=== PATIENT | female | born 1945 | race Caucasian/White ===

== ENCOUNTER → 2017-05-23 | Day surgery (SDC) | payer OTHER ==
[~2017-05-23] VITALS: Ht 157.5 cm; Wt 65.0 kg
[~2017-05-23] MED LIST: *ENALAPRILAT 1.25 MG/ML VIAL PERIprocedural Use ONLY ONE; ACETAMINOPHEN 500 MG CPLT PO PRN; ALEN35TA24 PO; ATROPINE SULFATE 1% OPHT SOLN 2 ML BTL ONE; BALANCED SALT SOLN OPHT IRRIG 15 ML BTL ONE; CHLORHEXIDINE GLUCONATE 2 % 1 PACK (2 CLOTHS) TOPICAL PRN; DAPA1TAB3 PO; DEXAMETHASONE SOD PHOS 4 MG/ML VIAL ONE; DEXTROSE 50% IN WATER 50 ML SYRINGE ONE; DO NOT ADM ANY ANTICOAGULANT DRUGS PRN; EPINEPHrine HCL (1:1000) 1 MG/ML VIAL ONE; FENO54TA PO; GABA100C4 PO; GLIP10TA6 PO; INSULIN HUMAN REGULAR 1,000 UNITS/10 ML VIAL SQ PRN; KETOROLAC TROMETHAMINE 30 MG/ML (IVP) VIAL IV PUSH ONE; LABETALOL HCL 100 MG/20 ML VIAL IV ONE; LACTATED RINGER'S 1000 ML IV PRN; LEVO50TA4 PO; LIDOCAINE HCL 1% PF 5 ML AMPULE OTHER ONE; LISI-519 PO; MECL-62 PO; METF1000 PO; METOPROLOL TARTRATE 25 MG TAB PO PRN; OMEP20TA PO; ONDANSETRON HCL 4 MG/2 ML VIAL IM PRN; ONDANSETRON HCL 4 MG/2 ML VIAL IV PUSH PRN; PHENYLEPH/NS 1000 MCG/10 ML SYR IV ONE; POVIDONE IODINE 5% (ANTISEPSIS KIT) 4 APPLICATIONS EACH NARE PRN; PROPOFOL 200 MG/20 ML AMP IV ONE; SODIUM CHLORID 0.9% 500 ML IV PRN; STERILE WATER FOR INJECTION 20 ML VIAL ONE; TRIAMCINOLONE ACETONIDE 40 MG/ML VIAL ONE; ceFAZolin INJ 1,000 MG VIAL ONE; oxyCODONE/ACETAMINOPHEN 5 MG/325 MG TAB PO PRN
[2017-05-23] MEDS: TROPICAMIDE 1% OPHT SOLN 15 ML BTL LEFT EYE SCH ×3 (06:09→07:40)
[2017-05-23] MEDS: PHENYLEPHRINE HCL 2.5% OPTH SOLN 2 ML BTL LEFT EYE SCH ×3 (06:09→07:40)
[2017-05-23] MEDS: CYCLOPENTOLATE HCL 1% OPHT SOLN 2 ML BTL LEFT EYE SCH ×3 (06:09→07:40)
[2017-05-23 07:05] LABS: AUTOMATED NEUTROPHIL # 4.8 TH/MM3 (1.8-7.7); BASOPHIL # 0.1 TH/MM3 (0-0.2); BASOPHIL % 0.7 % (0.0-2.0); EOSINOPHIL # 0.5 TH/MM3 (0-0.4); EOSINOPHIL % 5.9 % (0.0-4.0); HEMATOCRIT 37.7 % (35.0-46.0); HEMO FLAGS DIFF FINAL; LYMPH % 24.7 % (9.0-44.0); MEAN CELL VOLUME 84.5 FL (80.0-100.0); MEAN CORPUSCULAR HEMOGLOBIN 28.7 PG (27.0-34.0); MEAN CORPUSCULAR HGB CONC 33.9 % (32.0-36.0); NEUT % 60.7 % (16.0-70.0); PLATELET COUNT 236 TH/MM3 (150-450); RED BLOOD COUNT 4.45 MIL/MM3 (4.00-5.30); RED CELL DISTRIBUTION WIDTH 13.9 % (11.6-17.2)
[2017-05-23] MEDS: ATROPINE SULFATE 1% OPHT SOLN 5 ML BTL LEFT EYE SCH ×3 (07:25→08:30)
--- NOTE | 2017-05-23 12:36 | MP ---
cc: DELROY JAVIER M.D. DATE OF SURGERY 05/23/2017 PREOPERATIVE DIAGNOSIS Proliferative diabetic retinopathy with traction retinal detachment of the macula and vitreous hemorrhage left eye. POSTOPERATIVE DIAGNOSIS Proliferative diabetic retinopathy with traction retinal detachment of the macula and vitreous hemorrhage left eye. PROCEDURE Trans pars plana vitrectomy with membranectomy, endolaser photocoagulation and gas fluid exchange. SURGEON Dr. Delroy Javier ANESTHESIA General laryngeal mask anesthesia. INDICATIONS Mrs. Harris is a 71-year-old woman with a history of proliferative diabetic retinopathy as well as hypertension who presented with decreased vision in the left eye down to 20/200 On examination she was found to have a vitreous hemorrhage as well as traction retinal detachment of her macula with a tabletop configuration. She wished to proceed with vitrectomy to try and repair the tractional detachment and improve her visual functioning. The risks and benefits of surgery were discussed with the patient. Informed consent was obtained as well as the possibility of cataract formation from the surgery. The severity of the situation was discussed with the patient and no guarantee was made as to visual outcome. OPERATIVE PROCEDURE She was brought to [facility] Operating Room #1 on the eye stretcher. Once in the room appropriate anesthesia monitoring devices were applied and she was placed under general anesthesia using a laryngeal mask. The left eye was identified as the operative site and prepped and draped in the usual sterile fashion. A lid speculum was placed. Using the Giovanny 23-gauge vitrectomy system the trocar cannulas were placed 4 mm posterior to the limbus after first displacing the conjunctiva and with a beveled entrance through the sclera. The first one was placed at approximately 3:15 o'clock and verified to be in the posterior pole. An infusion cannula was affixed to it and it was turned on. Two additional trocar cannulas were placed at 10 and 2 o'clock. The eye was entered with the [employer] light pipe and vitrectomy cutter and using the flat contact lens a core vitrectomy was carried out. The fibrovascular proliferation was very dense and stiff with a circular pattern around the optic nerves and heading out to the superonasal mid-periphery and along both inferior and superior arcades. The ring was completed over the temporal macula. Using the vertical scissors and the vitrectomy cutter, dissection of this fibrous tissue to relieve the tractional detachment was performed. The retina was flattened under Perfluoron liquid and then laser photocoagulation was completed just outside the arcades and into the mid-periphery using the lighted endolaser probe. The power varied between 250 and 300 milliwatts and 0.1-second exposure, a total of 2521 laser spots were placed. The Perfluoron was removed and air-fluid exchange was performed. Then the air was exchanged for a 16% concentration of C3F8 gas. The trocar cannulas were removed one by one with tamponade of the site with a cotton swab and diathermy to the overlying conjunctival wound. This left the eye with good pressure and no visible air leaks. Atropine drops were placed on the cornea followed by subconjunctival actions of Ancef 125 mg in 0.5 cc and Decadron 2 mg in 0.5 cc. The lid speculum was removed. The patient was undraped. TobraDex ointment was placed on the cornea and then the left eye was patched and shielded. The patient had the laryngeal mask removed in the room and was returned to Recovery in a face-down position. It should be noted that during the procedure she appeared to be developing some posterior subcapsular changes, almost a diffuse fog of the posterior surface of the lens. It should also be noted that her blood pressure was not well-controlled prior to placing her under anesthesia but was controlled throughout the case. I will talk to her primary care doctor about better blood pressure control in the postop period. MD BERTO Ortega/JULIANA /11:02 AM /12:15 PM
[2017-05-23 13:00] VITALS: BP 154/70; PULSE 84; RESP 18; TEMP 96.9; O2SAT 97
--- NOTE | 2017-05-23 14:37 | EKG ---
Date Performed: 05/23/2017 Time Performed: 06:45:20 PTAGE: 71 years EKG: Sinus rhythm NORMAL ECG NO PREVIOUS TRACING DOCTOR: Jimmy Ro Interpretating Date/Time 05/23/2017 14:35:35
== END | disposition home or self-care (01) ==
LOC: HSDC 05:54
PROVIDERS: ATTEND Ophthalmology
DX: E11.3522 Type 2 diabetes mellitus with proliferative diabetic retinopathy with traction retinal detachment involving the macula, left eye (principal); H43.12 Vitreous hemorrhage, left eye; I10 Essential (primary) hypertension; E78.5 Hyperlipidemia, unspecified; E03.9 Hypothyroidism, unspecified; K21.9 Gastro-esophageal reflux disease without esophagitis; Z79.84 Long term (current) use of oral hypoglycemic drugs; Z79.899 Other long term (current) drug therapy
CPT/HCPCS: 00145; 67043; 85025; 93005; J0171; J0690; J1100; J1885; J2370; J3010; J3301; J7120